=== PATIENT | female | born 1940 | race Native Hawaiian/Other Pacific Islander ===

== ENCOUNTER → 2019-01-24 15:58 | Outpatient (CLI) | payer MEDICARE, OTHER, SELFPAY ==
[2019-01-24 18:47] LABS: HEMOLYSIS < 15 (0-50); Iron 101 ug/dL (37-170)
[2019-01-24 18:56] LABS: Albumin 3.8 g/dL (3.5-5.0); Blood Urea Nitrogen 54 mg/dL (7-17); Calcium 9.8 mg/dL (8.4-10.2); Carbon Dioxide 22 mmol/L (22-32); Chloride 100 mmol/L (98-107); Glucose 134 mg/dL (80-110); HEMOLYSIS < 15 (0-50); Potassium 4.8 mmol/L (3.4-5.1); Sodium 132 mmol/L (137-145)
[2019-01-24 18:59] LABS: Percent Iron Saturation 38 % (15-50); Total Iron Binding Capacity 263 ug/dL (265-497); Transferrin 204 mg/dL (206-381)
[2019-01-24 19:05] LABS: Add Manual Diff / Slide Review NO; Basophils Absolute Auto 0 /uL (0-100); Basophils Percent Auto 0.8 % (0-2); Eosinophils Absolute Auto 800 /uL (0-450); Eosinophils Percent Auto 12.9 % (2-4); Hemoglobin 11.7 g/dL (12.0-16.0); Lymphocytes Absolute Auto 1100 /uL (1100-4500); Lymphocytes Percent Auto 18.2 % (25-40); Mean Corpuscular HGB Conc 32.5 % (30-36); Mean Corpuscular Hemoglobin 28.9 PG (26-34); Mean Corpuscular Volume 88.9 fL (80-100); Monocytes Absolute Auto 700 /uL (0-900); Monocytes Percent Auto 11.4 % (3-14); Neutrophils Absolute Auto 3400 /uL (1500-7000); Neutrophils Percent Auto 56.7 % (50-75); Platelet Count 186 X10^3/uL (150-400); Red Blood Cell Count 4.05 X10^6/uL (4.0-5.2); Red Cell Distribution Width 14.3 % (11.6-14.8)
== END ==
PROVIDERS: Visit Provider Internal Medicine Nephrology
DX: N18.4 Chronic kidney disease, stage 4 (severe) (principal)
CPT/HCPCS: 36415; 80069; 83540; 83550; 85025

== ENCOUNTER → 2019-01-25 11:58 | Outpatient (CLI) | payer MEDICARE, OTHER, SELFPAY ==
[2019-01-25 15:47] LABS: Creatinine Urine Random 76.2 mg/dL; Protein (Total) Urine Random 158 mg/dL (0-12); Protein Creatinine Ratio Urine 2.07 GRAM/24H
== END ==
PROVIDERS: Visit Provider Internal Medicine Nephrology
DX: N18.4 Chronic kidney disease, stage 4 (severe) (principal)
CPT/HCPCS: 82570; 84156

== ENCOUNTER → 2019-02-21 14:03 | Outpatient (CLI) | payer MEDICARE, OTHER, SELFPAY ==
[2019-02-21 14:44] LABS: Add Manual Diff / Slide Review NO; Basophils Absolute Auto 100 /uL (0-100); Basophils Percent Auto 1.1 % (0-2); Eosinophils Absolute Auto 500 /uL (0-450); Eosinophils Percent Auto 11.3 % (2-4); Hematocrit 35.4 % (36-46); Hemoglobin 11.4 g/dL (12.0-16.0); Lymphocytes Absolute Auto 1100 /uL (1100-4500); Lymphocytes Percent Auto 22.3 % (25-40); Mean Corpuscular HGB Conc 32.3 % (30-36); Mean Corpuscular Hemoglobin 28.9 PG (26-34); Mean Corpuscular Volume 89.5 fL (80-100); Monocytes Absolute Auto 600 /uL (0-900); Monocytes Percent Auto 12.7 % (3-14); Neutrophils Absolute Auto 2600 /uL (1500-7000); Neutrophils Percent Auto 52.6 % (50-75); Platelet Count 223 X10^3/uL (150-400); Red Blood Cell Count 3.95 X10^6/uL (4.0-5.2); Red Cell Distribution Width 15.1 % (11.6-14.8); White Blood Cell Count 4.9 X10^3/uL (4.5-11.0)
[2019-02-21 15:11] LABS: Albumin 4.1 g/dL (3.5-5.0); BUN Creatinine Ratio 25.7 (6-22); Blood Urea Nitrogen 72 mg/dL (7-17); Calcium 9.4 mg/dL (8.4-10.2); Carbon Dioxide 20 mmol/L (22-32); Chloride 100 mmol/L (98-107); Estimated Glomerular Filt Rate 16.3 mL/min (>60); Glucose 109 mg/dL (80-110); HEMOLYSIS < 15 (0-50); Phosphorous 4.7 mg/dL (2.8-4.1); Potassium 4.7 mmol/L (3.4-5.1); Sodium 132 mmol/L (137-145)
[2019-02-21 15:19] LABS: HEMOLYSIS < 15 (0-50); Iron 152 ug/dL (37-170)
[2019-02-21 15:29] LABS: Percent Iron Saturation 57 % (15-50); Total Iron Binding Capacity 266 ug/dL (265-497); Transferrin 214 mg/dL (206-381)
[2019-02-21 16:35] LABS: Protein (Total) Urine Random 83 mg/dL (0-12); Protein Creatinine Ratio Urine 2.12 GRAM/24H
[2019-02-21 16:52] LABS: Microalbumi Creatinin Ratio Ur 1017.9 ug/mg CR (<30); Microalbumin Urine Random 39.7 mg/dL (0-1.6)
== END ==
PROVIDERS: Visit Provider Internal Medicine Nephrology
DX: D50.9 Iron deficiency anemia, unspecified (principal); N18.4 Chronic kidney disease, stage 4 (severe)
CPT/HCPCS: 36415; 80069; 82043; 82570; 83540; 83550; 84156; 85025

== ENCOUNTER 2019-04-24 10:04 | Emergency (ER) | payer MEDICARE, OTHER, SELFPAY ==
[2019-04-24 10:21] VITALS: BP 137/66; PULSE 79; RESP 20; TEMP 36.7; O2SAT 100
--- NOTE | 2019-04-24 10:29 | ED_ITS ---
HPI - Extremity Problem General Chief complaint: Extremity Problem,Nontraumatic Stated complaint: right thumb swelling x3-4 days Time Seen by Provider: 04/24/19 10:12 Source: patient and family (Daughter) Mode of arrival: ambulatory Limitations: no limitations History of Present Illness HPI Narrative: 78-year-old female. Known chronic kidney disease. Not on dialysis. Has history of dementia as well. He is here with her daughter and son-in-law. They are here for evaluation of right thumb pain and swelling. They do not remember any specific trauma and the patient does not states that she sustained any trauma however this is somewhat confused by her history of dementia. They stated that the patient did not mention any pain or swelling until yesterday. Family did not notice any symptoms until yesterday when the patient mention did. They have stated that since yesterday they feel that the thumb is become more swollen. Is also redness over the area. They deny any fevers. Related Data Previous Rx's Medication Instructions Recorded cephalexin [Keflex] 250 mg PO BID 5 Days #10 cap 04/24/19 Allergies Allergy/AdvReac Type Severity Reaction Status Date / Time acetaminophen Allergy Verified 04/24/19 10:25 [From Darvocet-N] levofloxacin [From Levaquin] Allergy Verified 04/24/19 10:25 propoxyphene Allergy Verified 04/24/19 10:25 [From Darvocet-N] Review of Systems Review of Systems Narrative: Somewhat limited by the patient's history of dementia. Review of systems provided mostly by family. Constitutional Constitutional: Denies fever(s) Cardiovascular Cardiovascular: Denies dyspnea Respiratory Respiratory: Denies dyspnea Gastrointestinal Gastrointestinal: Denies vomiting Musculoskeletal Comments: Right thumb pain and swelling and redness Integumentary/Breasts Comments: Redness and swelling of the right thumb Neurologic Neurologic: Denies behavioral changes Psychiatric Psychiatric: Denies behavioral changes [facility] Medical History Chronic kidney disease (Acute) Social History Smoking Status: Current every day smoker Social History Smoking Status: Current every day smoker Exam Initial Vital Signs Initial Vital Signs: Vital Signs Temperature 98.1 F 04/24/19 10:21 Pulse Rate 79 04/24/19 10:21 Respiratory Rate 20 04/24/19 10:21 Blood Pressure 137/66 04/24/19 10:21 Pulse Oximetry 100 04/24/19 10:21 Const General: cooperative and comfortable Orientation: awake and confused Resp Effort & Inspection: normal respiratory effort Cardio Pulses: radial pulses present on the right Skin Other: Redness over the IP joint extending proximal to the MCP joint to the right thumb. No breaks in the skin. Extrem Other: Patient with redness and swelling over the IP joint of the right thumb. Does seem to be tender to palpation and movement. The MCP joint of the right th umb does not seem to cause her discomfort. Rest of the right hand is unremarkable Procedures Orthopedic Splinting/Casting Injury #1: Side: right Upper Extremity Injury Location: finger Upper Extremity Immobilizer: aluminum form splint Post splinting neuro exam: no change Post splinting vascular exam: no change Placed by: Nursing Course Orders Ordered: ED Orders 04/24/19 10:29 XR hand RT min 3V Stat Vital Signs Vital signs: Vital Signs - 8 hr 04/24/19 10:21 Temperature 98.1 F Pulse Rate 79 Respiratory Rate 20 Blood Pressure 137/66 Pulse Oximetry 100 MDM - Extremity (Nontraumatic) Imaging Data X-ray thumb: Radiologist's impression: [place] [address] XRay Report Signed Patient: Carol Cruz GMR#: [id number] : 8Acct:[id number] Age/Sex: 78 / FDate of Service: 04/24/19 Loc: ED Accession Number: [id number] Procedure: XR hand RT min 3V Ordering Provider: Jayjay Lobo D.O. PROCEDURE: XR HAND RT MIN 3V INDICATIONS: right thumb swelling unknown trauma TECHNIQUE: 3 views of the hand(s) acquired. COMPARISON: None. FINDINGS: Bones: There is a small fracture seen along the proximal aspect of the distal phalanx of the thumb, with intra-articular involvement. No additional fractures are seen. Age-appropriate osteopenia and bony degenerative changes are seen. Soft tissues: No suspicious soft tissue calcifications. IMPRESSION: Small fracture along the base of the distal phalanx of the thumb, with intra-articular involvement. Dictated by: Maico Paredes M.D. on 04/24/2019 at 9:54 Approved by: Maico Paredes M.D. on 04/24/2019 at 9:55 [facility] Narrative Medical decision making narrative: Patient is afebrile. Is at baseline mental status per the family. The x-ray does show a fracture of the proximal portion of the distal phalanx of the right thumb. This does correspond to where the swelling is however the patient's physical exam seems to be worse than what the fracture appears like. She also has redness that extends proximal to the MCP joint of the thumb. There is some warmth over this area. I do have some concern about a skin infection. I do not think this is a septic joint. After discussion with the patient's family the plan will be is to treat this like a fracture and placed a splint over the thumb. We will also cover her with antibiotics given her age in chronic kidney disease. We discussed the risks and benefits of starting her on antibiotics to include potentially having antibiotics that she does not need. The family expressed understanding of this and they also agree with the antibiotics. They are given return precautions and follow-up instructions. They expressed understanding and agreement with plan. Discharge Plan Departure Patient Disposition: Home Clinical Impression: Fracture of thumb Qualifiers: Encounter type: initial encounter Fracture type: closed Phalanx: proximal Fracture alignment: nondisplaced Laterality: right Qualified Code(s): S62.514A - Nondisplaced fracture of proximal phalanx of right thumb, initial encounter for closed fracture Instructions: How to Take Care of Your Splint Activity Restrictions/Additional Instructions: The splint should stay on as much as possible. I would also recommending icing the thumb. We did start the antibiotics per discussion here in the emergency department. I recommend that tomorrow you contact her primary doctor to discuss follow-up. Return to the emergency department for any new or worsening symptoms Prescriptions: New cephalexin [Keflex] 250 mg capsule 250 mg PO BID 5 Days Qty: 10 RF: 0
== END 2019-04-24 11:36 | disposition home or self-care (01) ==
PROVIDERS: Emergency Provider Emergency Medicine
DX: S62.514A Nondisplaced fracture of proximal phalanx of right thumb, initial encounter for closed fracture (principal)
CPT/HCPCS: 29130; 73130; 99282; 99283